=== PATIENT | male | born 1940 | race Caucasian/White ===

== ENCOUNTER 2018-07-05 23:42 | Inpatient (IN) ==
[2018-07-06] MEDS ORDERED: ASPIRIN PR ONE (00:18)
[2018-07-06] MEDS ORDERED: ASPIRIN PO ONE (00:18)
[2018-07-06 00:36] LABS: BASO# 0.04 X1000 (0.0-0.2); BASO% 0.6 % (0.0-0.8); EOS# 0.35 X1000 (0.0-0.7); EOS% 4.9 % (0.0-10.0); HEMATOCRIT 45.8 % (42.0-52.0); HEMOGLOBIN 16.1 g/dL (14.0-18.0); IMM GRAN# 0.02 X1000 (0.0-0.04); IMM GRAN% 0.3 % (0.0-0.5); LYMPH# 2.73 X1000 (1.2-3.4); LYMPH% 37.9 % (20.5-51.1); MCH 30.7 PG (27-31); MCHC 35.2 g/dL (33-37); MCV 87.4 FL (81-99); MONO# 0.71 X1000 (0.11-0.59); MONO% 9.9 % (1.7-9.3); MPV 10.2 FL (7.4-10.4); NEUT# 3.35 X1000 (1.4-6.5); NEUT% 46.4 % (42.2-75.2); PLT 155 X1000 (130-400); RBC 5.24 XMIL (4.7-6.1); RDW 12.9 % (11.5-14.5)
[2018-07-06 00:40] LABS: INR 0.98; PROTIME 13.7 Seconds (11.0-16.0)
[2018-07-06 00:41] LABS: PTT 32.3 Seconds (22.3-41.8)
[2018-07-06 01:14] LABS: AGAP 12; ALB/GLOB RATIO 1.8; ALBUMIN 4.2 g/dL (3.5-5.0); ALKALINE PHOSPHATASE 126 U/L (32-122); BUN 19 mg/dL (8-22); CALCIUM 9.2 mg/dL (8.8-10.2); CHLORIDE 105 mmol/L (98-107); CK PROFILE 36 U/L (24-204); COSMO 288; CREATININE 0.7 mg/dL (0.7-1.2); ESTIMATED GFR > 60; GLUCOSE 110 mg/dL (70-104); GOT 22 U/L (10-34); GPT 16 U/L (10-44); SODIUM 143 mmol/L (136-145); TCO2 26 mmol/L (25-35); TOTAL BILIRUBIN 0.45 mg/dL (0.20-1.00); TOTAL PROTEIN 6.6 g/dL (6.3-8.3)
--- NOTE | 2018-07-06 02:19 | PROVIDER DOCUMENTATION ---
This chart was entered by Paulette Dc Scribe, acting as scribe for Aries Keys MD. HPI-Cardiac General - General Chief Complaint: General Adult Stated Complaint: LOW HEART RATE Time Seen by Provider: 07/06/18 01:17 Source: patient Allergies/Adverse Reactions: Patient Allergies Allergy/AdvReac Type Severity Reaction Status Date / Time No Known Allergies Allergy Verified 03/24/18 16:39 Home Medications: Home Medication List Medication Instructions Recorded Confirmed Last Taken Type Cyclobenzaprine [Flexeril] 10 mg PO HS 01/24/17 03/24/18 03/23/18 History Diltiazem HCl [Diltiazem 12Hr ER] 120 mg PO DAILY 01/24/17 03/24/18 03/23/18 History Gabapentin 300 mg PO TID 01/24/17 03/24/18 03/23/18 History Hydrocodone/Acetaminophen [[place] 1 tab PO PRN PRN 01/24/17 03/24/18 03/23/18 History 7.5-325 Tablet] Meloxicam 7.5 mg PO DAILY 01/24/17 03/24/18 03/23/18 History Methocarbamol 750 mg PO TID 01/24/17 03/24/18 03/23/18 History Tamsulosin [Flomax] 0.4 mg PO DAILY 01/24/17 03/24/18 03/23/18 History - History of Present Illness-Cardiac Nature of Presenting Problem: PT had gone to bed and when he woke up he was having some palpations , so he took his BP and it was fine, but his heart rate was in the 30s, he got up- and started walking around and he felt light headed, but his heart rate was then in the 60s. Pt had a stress test last week and was told that he had some abnormalities in his heart, not adequate profusion. He has a CT coronary study next week. Location: reports: central Quality of Pain: reports: other (palpitations) Severity in ED: moderate Timing: still present Context/Activities at Onset: reports: none Modifying Factors: improves with: nothing Palpitation Quality: other (palpitations) History of arrythmia: reports: A-Fib Nitro Today/Relief: reports: no nitro taken today Aspirin Treatment Today: reports: no aspirin today Prior Chest Pain/Cardiac Workup: reports: stress test Associated Symptoms: denies: diaphoresis, shortness of breath Similar Symptoms Previously?: No Recently Seen Here or By Another Healthcare Provider: No Review of Systems - Adult - REVIEW OF SYSTEMS - ADULT Constitutional: reports: no symptoms reported. denies: chills, fever Eyes: reports: no symptoms reported Ears, Nose, Mouth & Throat: reports: no symptoms reported Cardiovascular: reports: palpitations Respiratory: reports: no symptoms reported Gastrointestinal: reports: no symptoms reported. denies: nausea, vomiting Genitourinary: reports: no symptoms reported Musculoskeletal: reports: no symptoms reported Integumentary: reports: no symptoms reported Neurological: reports: no symptoms reported. denies: dizziness/vertigo, headache/migraines Psychiatric: reports: no symptoms reported Endocrine: reports: no symptoms reported Hematologic/Lymphatic: reports: no symptoms reported Allergic/Immunologic: reports: no symptoms reported All Other Systems: Reviewed and Negative Past History - Adult - PAST MEDICAL HISTORY-ADULT Review of Records: reports: Old Records Reviewed, Nursing Assessment Review, Medications Reviewed, Social history reviewed & non-contributory. Major Childhood Illnesses: reports: denies history Cardiovascular: reports: A-Fib Respiratory: reports: denies history Gastrointestinal: reports: denies history Genitourinary: reports: denies history Musculoskeletal: reports: denies history Neurological: reports: denies history Psychiatric: reports: denies history Endocrine/Immune: reports: denies history Other Conditions: reports: denies history - PRIOR SURGERIES/PROCEDURES Surgical/Procedure History: reports: joint replacement - FAMILY HISTORY Family History: reviewed, not pertinent - SOCIAL HISTORY Smoking: denies, non-smoker Substance Use: none/never Alcohol Use Frequency: never Living Situation: family Physical Exam-General - PHYSICAL EXAM-ADULT Initial Vital Signs Reviewed: Yes - CONSTITUTIONAL General Appearance: appears well, alert, no apparent distress - EYES Eyes: PERRL/EOMI, pink conjunctivae - HEAD, EARS, NOSE, MOUTH & THROAT HENMT: normocephalic/atraumatic, moist mucous membranes, normal ENT inspection, TMs normal, pharynx normal - NECK Neck: non-tender, full range of motion, supple, normal inspection - RESPIRATORY Respiratory: lungs clear - CARDIOVASCULAR Cardiovascular: normal peripheral pulses, regular rate, rhythm, no edema - GASTROINTESTINAL (ABDOMEN) Abdominal Exam: normal bowel sounds, non tender, soft - LYMPHATIC Lymphatic: no adenopathy - MUSCULOSKELETAL Back Exam: normal inspection, no CVA tenderness, no vertebral tenderness Extremity: normal range of motion, non-tender, normal gait, normal inspection - SKIN Integumentary: normal color, warm/dry - NEUROLOGIC Neurologic: grossly normal - PSYCHIATRIC Psych/Mental Status: normal mood/affect, normal thought content, normal thought process, oriented x 3 Progress - PLAN OF CARE/RESULTS Progress/Plan/Lab Results: Vital Signs - 8 hr 07/05/18 23:50 Temperature 98.1 F Pulse Rate 43 L Respiratory Rate 20 Blood Pressure 131/61 O2 Sat by Pulse Oximetry 95 Laboratory Results - last 24 hr 07/06/18 07/06/18 07/06/18 00:06 00:06 00:06 WBC 7.20 RBC 5.24 Hgb 16.1 Hct 45.8 MCV 87.4 MCH 30.7 MCHC 35.2 RDW Std Deviation 12.9 Plt Count 155 MPV 10.2 Immature Gran % (Auto) 0.3 Neut % (Auto) 46.4 Lymph % (Auto) 37.9 [place] % (Auto) 9.9 H Eos % (Auto) 4.9 Baso % (Auto) 0.6 Immature Gran # (Auto) 0.02 Neut # (Auto) 3.35 Lymph # (Auto) 2.73 [place] # (Auto) 0.71 H Eos # (Auto) 0.35 Baso # (Auto) 0.04 PT INR PTT (Actin FS) Sodium 143 Potassium 4.0 Chloride 105 Carbon Dioxide 26 Anion Gap 12 BUN 19 Creatinine 0.7 Estimated GFR/1.73 m2 > 60 BUN/Creatinine Ratio 27 Glucose 110 H Calculated Osmolality 288 Calcium 9.2 Total Bilirubin 0.45 AST 22 ALT 16 Alkaline Phosphatase 126 H Creatine Kinase 36 Troponin T [id number] Pept 297 Total Protein 6.6 Albumin 4.2 Globulin 2.4 Albumin/Globulin Ratio 1.8 07/06/18 07/06/18 00:06 00:06 WBC RBC Hgb Hct MCV MCH MCHC RDW Std Deviation Plt Count MPV Immature Gran % (Auto) Neut % (Auto) Lymph % (Auto) [place] % (Auto) Eos % (Auto) Baso % (Auto) Immature Gran # (Auto) Neut # (Auto) Lymph # (Auto) [place] # (Auto) Eos # (Auto) Baso # (Auto) PT 13.7 INR 0.98 PTT (Actin FS) 32.3 Sodium Potassium Chloride Carbon Dioxide Anion Gap BUN Creatinine Estimated GFR/1.73 m2 BUN/Creatinine Ratio Glucose Calculated Osmolality Calcium Total Bilirubin AST ALT Alkaline Phosphatase Creatine Kinase Troponin T < 0.010 [id number] Pept Total Protein Albumin Globulin Albumin/Globulin Ratio Orders Category Date Time Status Cardiac Monitoring DIRECTED Care 07/06/18 00:19 Active Oxygen Therapy- ED Nursing DIRECTED Care 07/06/18 00:19 Active Saline Loc NOW Care 07/06/18 00:19 Active CHEST-2 VIEWS [RAD] Stat Exams 07/06/18 00:19 Taken CBC WITH ELECTRONIC DIFF [HEME] Stat Lab 07/06/18 00:06 Completed CK PROFILE [SP CHEM] Stat Lab 07/06/18 00:06 Completed COMPREHENSIVE METABOLIC PANEL [CHEM] Stat Lab 07/06/18 00:06 Completed PRO B-NATRIURETIC PEPTIDE Stat Lab 07/06/18 00:06 Completed PROTIME WITH INR [COAG] Stat Lab 07/06/18 00:06 Completed PTT [COAG] Stat Lab 07/06/18 00:06 Completed TROPONIN T Stat Lab 07/06/18 00:06 Completed Aspirin Med 07/06/18 00:18 Discontinued 300 mg [place] NOW ONE Aspirin Med 07/06/18 00:18 Discontinued 325 mg PO NOW ONE CP/SOB/Palp >45 yrs of Age Stat Oth 07/06/18 00:18 Ordered EKG [EKG] Stat Ther 07/05/18 23:44 Ordered Result Diagrams: 07/06/18 00:06 07/06/18 00:06 - EKG 1 Time of EKG reading by physician:: 23:49 EKG Read and Signed by:: Aries Keys EKG Interpretation (*Must complete 3 of following elements*): Normal (Sinus rhythm w/ frequent premature ventricular complexes w/ ventricular escape complexes. Otherwise normal ECG) Rate: 66 Rhythm: sinus [place]: normal QRS: normal [place] Interval: normal Departure - Departure Date of Disposition Decision: 07/06/18 Time of Disposition Decision: 02:18 DIAGNOSIS: Heart palpitations Disposition: ADMITTED INPATIENT 09 Certified Medical Emergency: Emergent Condition: Stable Referrals and Follow-Ups: Esequiel Valles MD [Primary Care Provider] - - Critical Care Note This patient required my direct & personal management of CC.: No Attestation - Physician/ DEAN Attestation Patient care was provided by Advanced Practice Provider:: No The physician spent face to face time with patient:: Yes Advanced Practice Provider documentation review:: Supervising physician onsite and consulted in the evaluation and care of this patient. The physician did have a face to face encounter with the patient. This chart was documented by the indicated scribe, (Paulette Dc, Josafat) and accurately reflects the services I performed and decisions made by me, Aries Keys MD, as attested by the provider's signature.
--- NOTE | 2018-07-06 04:06 | HISTORY AND PHYSICAL ---
PRIMARY CARE PHYSICIAN: Dr. Frank Hester. PRIMARY CARDIAC CATHETERIZATION TECHNICIAN: Dr. Esequiel Valles. CHIEF COMPLAINT: Lightheaded, dizzy, bradycardic. HISTORY OF PRESENT ILLNESS: This is a 77-year-old male with past medical history of atrial fibrillation and sleep apnea. Patient reports that he has gone to bed today when he woke up he was having some palpitations so immediately he checked his blood pressure and it was okay, but heart rate according to the machine was in the 30s so he started walking around some and he felt lightheaded so he decided to come to the emergency department because of this sensation. He has been recently seen by Dr. Valles in the office. He had an echocardiogram, and a Lexiscan nuclear stress test, and he had an appointment already to have a CT angiography next week. Upon ER evaluation, he had a heart rate of 43. He was still symptomatic with some lightheadedness so patient is going to be admitted for further evaluation and treatment. PAST MEDICAL HISTORY: 1. Atrial fibrillation, currently on diltiazem. He has been started on Xarelto in March 2018 but he had severe hematuria and subconjunctival hemorrhage so that medication was stopped and he was placed on aspirin. 2. Sleep apnea. Patient uses CPAP at home. PAST SURGICAL HISTORY: 1. Patient had a surgery of the jaw for his sleep apnea in 1996 in [facility]. 2. Back surgery. 3. Right knee replacement in 2014. 4. Appendectomy. 5. Biopsy of prostate. ALLERGIES: No known drug allergies. SOCIAL HISTORY: Patient does not drink alcohol. Does not smoke or use illicit drugs. Patient lives with . FAMILY HISTORY: Positive for father who had apparently a heart attack and abnormal heart rhythm before. REVIEW OF SYSTEMS: Review of systems was reviewed and all symptoms are related to H and P. PHYSICAL EXAMINATION: VITAL SIGNS: Temperature 98.1 degrees, heart rate 43, respiratory 20, blood pressure 131/61, O2 saturation 95% on room air. GENERAL: This is a 77-year-old male lying in bed in no acute distress. HEENT: Head is normocephalic, atraumatic. Mucous membranes dry. NECK: Supple. No JVD noted. No carotid bruits. No lymphadenopathy. No thyromegaly. CARDIOVASCULAR: Irregularly irregular heart rhythm. Bradycardic. No murmurs, gallops, or rubs noted. RESPIRATORY: Clear bilaterally to auscultation. No work of breathing or using accessory muscles. ABDOMEN: Soft, nontender to palpation. Bowel sounds present. No organomegaly. EXTREMITIES: No clubbing, cyanosis, or edema. Peripheral pulses present in both legs. NEUROLOGICAL: Patient alert, oriented x3. Moves all extremities. LABORATORY DATA: CBC and BMP are basically unremarkable. First set of troponins were negative. ProBNP is normal. ASSESSMENT: 1. Asymptomatic bradycardia. 2. Chronic atrial fibrillation. PLAN: At this point, patient is going to be admitted for further evaluation and treatment of course because of this atrial fibrillation with bradycardia. For that reason, we are going to consult Cardiology who will see this patient. Can have that exam, in this case CT angiography or left heart catheterization, while he is here in the hospital. We will leave the decision to Cardiology to do that. Of course, considering this low heart rate we are going to hold any pain medication that can worsen bradycardia. Of course, we are going to stop Cardizem. Also, for sleep apnea patient is going to be bringing his home CPAP. We are going to monitor this patient closely. cc: Noe Bettencourt MD
[2018-07-06] MEDS ORDERED: ZOFRAN IV PRN (04:15)
[2018-07-06] MEDS ORDERED: TYLENOL PO PRN (04:15)
--- NOTE | 2018-07-06 06:11 | Diag Imaging Result Doc PS360 ---
EXAM: CHEST-2 VIEWS HISTORY: CP TECHNIQUE: Chest two views COMPARISON: 01/29/2014 FINDINGS: The lungs are well expanded. The heart is not enlarged. The vessels are not distended. There are no infiltrates. No pleural effusions. IMPRESSION: No acute abnormality. Electronically signed by Neil Bella 07/06/2018 6:09 AM
[2018-07-06] MEDS ORDERED: PRILOSEC PO SCH (07:00)
--- NOTE | 2018-07-06 07:12 | EKG Report ---
Test Performed on : 07/05/2018 11:49:02 PM Test Reason : LOW HR Blood Pressure : / mmHG Vent. Rate : 066 BPM Atrial Rate : 066 BPM P-R Int : 178 ms QRS Dur : 100 ms QT Int : 372 ms P-R-T Axes : 035 079 038 degrees QTc Int : 389 ms Sinus rhythm. with frequent premature ventricular complexes. with ventricular escape complexes. Otherwise normal ECG When compared with ECG of 03-FEB-2015 14:26, premature ventricular complexes. are now present Sinus rhythm. is now with ventricular escape complexes. Unconfirmed Result
[2018-07-06] MEDS ORDERED: ROBAXIN PO SCH (09:00)
[2018-07-06] MEDS ORDERED: FLOMAX PO SCH (09:00)
--- NOTE | 2018-07-06 10:16 | PROGRESS NOTE ---
DATE: 07/06/2018 Mr. Jasso was woke up last night and noticed he had felt some palpitations. When he came in, his heart rate was apparently around 35, in the 30s. He is in the process of being worked up by Cardiology for questionable inferior ischemia and so came to the hospital and was evaluated in the emergency room. He has had an echocardiogram, Lexiscan nuclear test and he had an appointment to get a CT angiogram this next week. In the emergency room they documented a rate of 43. Has a history of atrial fibrillation, currently on diltiazem and Xarelto. He had some severe hematuria and subconjunctival bleeding so they had stopped his Xarelto and put him on aspirin. He has a history of sleep apnea and obesity. He has had surgery on his jaw for sleep apnea in 1996. So, admitted with bradycardia and he is on Cardizem. Question is whether he has tachy-thai syndrome or will require pacemaker. I think they are also in the process of evaluating for ischemia so Cardiology is consulted and we will continue present medication. He is on aspirin. I gave him 300 mg today, but he is on 325 daily, Flomax 0.4 mg a day, Robaxin 750 mg t.i.d. and he takes Flexeril 10 mg at night for back spasms and lower back pain. They have held his Cardizem. LABORATORY DATA: On review of his lab, hematocrit 45, hemoglobin 16, platelet count 155,000. Electrolytes unremarkable. So, I do want to check a T4, TSH, B12 and folate. cc: Frank Hester MD
[2018-07-06 11:41] VITALS: BP 124/73
--- NOTE | 2018-07-06 12:07 | DISCHARGE SUMMARY ---
ADMISSION DATE: 07/06/2018 DISCHARGE DATE: 07/06/2018 Presented complaining lightheaded, dizzy. It was late at night yesterday evening and felt some palpitations and rechecked his pulse, it was in the 30s and 40s. Cannot find any documentation of that on monitor or EKG. Suspect he was having frequent PVCs and bigeminy, was probably just palpating at every other beat. No chest pain. No evidence of active cardiac ischemia. His lab unremarkable. Cardiology evaluated him. Troponin was less than 0.01 on series of 3. Electrolytes look good. He was in the midst of getting a workup with Cardiology including event monitor and I think a CT angiogram I think was planned. They had done an echocardiogram and a GXT so felt we could let him go home and resume the outpatient workup. Did not see any true documentation of significant bradycardia so discharged him home. He will continue his current medications. We put him back on the Cardizem. He is on Cardizem because of history of atrial fibrillation. We have been holding Xarelto because he had some gross hematuria and subconjunctival hemorrhage, so he is on Flomax because of benign prostatic hypertrophy, so he will go back on the Flomax 0.4 mg a day, diltiazem ER 120 mg a day, aspirin just 81 mg a day. He is taking meloxicam 7.5 mg a day and let him use muscle relaxers as needed, methocarbamol 750 mg t.i.d. and then he has Flexeril he can take at night 10 mg. Finish his workup as an outpatient. cc: Frank Hester MD
--- NOTE | 2018-07-06 17:43 | CARDIOLOGY CONSULTATION ---
DATE: 07/06/2018 INDICATION FOR PRESENTATION: Palpitations and bradycardia. HISTORY OF PRESENT ILLNESS: Mr. Jasso is a 77-year-old gentleman with a history of atrial fibrillation. He presented after waking up in the evening yesterday with complaints of palpitations. He checked his blood pressure at home as well as his pulse, and his pulse was noted to be in the 30s. He was not particularly lightheaded or having any sort of pain. He presented to the ER because he was very concerned. In the ER, he has had heart rates checked and they have predominantly been in the 50s to 60s. He did have one rate measured of 43 and another at 47, but predominantly they have all been in the 50s and 60s. He has had resolution of his symptoms since presenting to the ER. He had no chest pain complaints. The patient does not report any episodes of shortness of breath. PAST MEDICAL HISTORY: Significant for 1. Atrial fibrillation that is paroxysmal in nature. The patient had previously been on anticoagulation but apparently had some bouts of significant hematuria in the past as well as severe bilateral conjunctival hemorrhages. He was stopped of Xarelto in March 2018. 2. Sleep apnea. 3. Hypertension. 4. Hyperlipidemia. SOCIAL HISTORY: He has no alcohol intake. He does not smoke or use illicit drugs. He is . FAMILY HISTORY: Significant for father who had a heart attack and some sort of abnormal heart rhythm. REVIEW OF SYSTEMS: A 10-system review of systems is negative except for those things mentioned in HPI. PHYSICAL EXAMINATION: Vital Signs: The patient is afebrile during this hospitalization. His heart rate has predominantly been in the 50s to 60s with an occasional in the 40s. His blood pressure is 124/73. General: He is in no acute distress. HEENT: Oropharynx is moist. Normal dentition. Eye examination is pink conjunctivae. White sclerae. Neck: Shows no obvious thyromegaly or thyroid tenderness. Cardiovascular: He sounds to be in a regular rate and rhythm. He has no obvious murmurs. He has no S3. He has no lower extremity edema. Chest: Clear bilaterally. He has no increased work of breathing. Abdomen: Soft, nontender, nondistended. He has no obvious organomegaly. Skin: Warm and dry throughout without any rashes. Neurological: He is moving all extremities well. He has no lateralizing deficits. Psychiatric: Alert and oriented, pleasant. Normal mood and affect. PERTINENT DATA: He had a stress test on 06/27/2018 demonstrating a low grade reversible perfusion defect in the inferior apical and inferolateral wall suggestive of ischemia. Soft tissue attenuation cannot be ruled out. Ejection fraction on that study was 71%. Echocardiogram showed an ejection fraction of 62%. He had a chest x-ray here demonstrating no evidence of acute abnormalities. His EKG reviewed by me showed sinus rhythm with multiple PVCs at times in a pattern of bigeminy. His laboratory data shows a white count of 7.2, hematocrit 45, platelet count of 155,000. His INR is 0.98. His sodium is 143, potassium 4, BUN 19, creatinine 0.7. Cardiac enzymes are negative times multiple sets. His proBNP was normal. His albumin is 4.2. ASSESSMENT: Mr. Jasso is a 77-year-old gentleman who presented with asymptomatic bradycardia and really no other symptoms. PLAN: The patient has been relatively bradycardic during this hospitalization but did not seem to be symptomatic at those times. His eat initially EKG showed PVCs which I believe were most likely resulting in an abnormal low pulse on his blood pressure check at home secondary to not accurately counting the heart rate. We will get him set up for a CUCO at home to further evaluate these episodes. He has already been arranged for a coronary CTA per Dr. Valles, and we will not interfere with that at this time. cc: MD Frank Barnes MD
[2018-07-06] MEDS ORDERED: FLEXERIL PO SCH (21:00)
[2018-07-07] MEDS ORDERED: ASPIRIN PO SCH (09:00)
== END 2018-07-06 11:45 | disposition home or self-care (01) | DRG 310 ==
LOC: ED 23:42 → SUPCPDRO 07-06 05:15 → SUATTDRO 07-06 05:15 → EDIPHOLD 07-06 05:15
PROVIDERS: ADMIT Emergency Medicine; ATTEND Emergency Medicine
CPT/HCPCS: 71020; 71046; 80053; 82550; 83880; 84484; 85025; 85610; 85730; 93005; 99285; A9270